=== PATIENT | female | born 1990 | race Two or more races ===

== ENCOUNTER 2016-12-22 13:44 | Emergency (ER) | payer BC, OTHER ==
[~2016-12-22] VITALS: Ht 162.6 cm; Wt 66.7 kg
[~2016-12-22 13:44] MED LIST: HYDR-971 PO; NAPR-695 PO
[2016-12-22 13:52] VITALS: BP 110/65
[2016-12-22 14:53] LABS: BILIRUBIN,URINE NEGATIVE (NEG); GLUCOSE,URINE NEGATIVE (NEG); NITRITE,URINE NEGATIVE (NEG); PROTEIN,URINE NEGATIVE (NEG-TRACE)
--- NOTE | 2016-12-22 14:54 | PHYS DOC ---
Past Medical History Past Medical History: Asthma Past Surgical History: No Surgical History Alcohol Use: None Drug Use: None Adult General Chief Complaint Chief Complaint: LOWER BACK PAIN OR INJURY HPI HPI Patient is a 26 year old female with history of asthma who presents with bilateral low back pain mild in nature worse on movement with slight dysuria and intermittent episodes of fever for the last 2 weeks. Patient is currently breast-feeding and has an Implanon hence denies any chance she is . Denies any hematuria. Denies any loss of bowel bladder function. Denies any numbness or tingling to bilateral lower extremities. Review of Systems Review of Systems Constitutional: Denies fever or chills [] Eyes: Denies change in visual acuity, redness, or eye pain [] HENT: Denies nasal congestion or sore throat [] Respiratory: Denies cough or shortness of breath [] Cardiovascular: No additional information not addressed in HPI [] GI: Denies abdominal pain, nausea, vomiting, bloody stools or diarrhea [] : dysuria and denies hematuria [] Musculoskeletal: Low back pain Integument: Denies rash or skin lesions [] Neurologic: Denies headache, focal weakness or sensory changes [] Endocrine: Denies polyuria or polydipsia [] Allergies Allergies Allergies Coded Allergies Type Severity Reaction Last Updated Verified No Known Allergies Allergy Unknown 09/09/15 Yes Physical Exam Physical Exam Constitutional: Well developed, well nourished, no acute distress, non-toxic appearance. [] HENT: Normocephalic, atraumatic, bilateral external ears normal, oropharynx moist, no oral exudates, nose normal. [] Eyes: PERRLA, EOMI, conjunctiva normal, no discharge. [] Neck: Normal range of motion, no tenderness, supple, no stridor. [] Cardiovascular:Heart rate regular rhythm, no murmur [] Lungs & Thorax: Bilateral breath sounds clear to auscultation [] Abdomen: Bowel sounds normal, soft, no tenderness, no masses, no pulsatile masses. [] Skin: Warm, dry, no erythema, no rash. [] Back: Paraspinal muscles tenderness to the lumbar spine, no midline lumbar spine tenderness, no CVA tenderness. [] Extremities: No tenderness, no cyanosis, no clubbing, ROM intact, no edema. [] Neurologic: Alert and oriented X 3, normal motor function, normal sensory function, no focal deficits noted. [] Psychologic: Affect normal, judgement normal, mood normal. [] Current Patient Data Vital Signs Vital Signs Date Time Temp Pulse Resp B/P (MAP) Pulse Ox O2 Delivery O2 Flow Rate FiO2 12/22/16 13:52 98.1 64 18 98 Room Air 98.1 Lab Values Laboratory Tests Test 12/22/16 14:28 12/22/16 14:45 POC Urine HCG, Qualitative Hcg negative (Negative) Urine Collection Type Unknown Urine Color Yellow Urine Clarity Clear Urine pH 6.0 Urine Specific [place] >=1.030 Urine Protein Negative mg/dL (NEG-TRACE) Urine Glucose (UA) Negative mg/dL (NEG) Urine Ketones (Stick) Negative mg/dL (NEG) Urine Blood Negative (NEG) Urine Nitrite Negative (NEG) Urine Bilirubin Negative (NEG) Urine Urobilinogen Dipstick 1.0 mg/dL (0.2 mg/dL) Urine Leukocyte Esterase Negative (NEG) Urine RBC 0 /HPF (0-2) Urine WBC 0 /HPF (0-4) Urine Squamous Epithelial Cells Few /LPF Urine Bacteria 0 /HPF (0-FEW) Urine Mucus Marked /LPF EKG EKG [] Radiology/Procedures Radiology/Procedures [] Course & Med Decision Making Course & Med Decision Making Pertinent Labs and Imaging studies reviewed. (See chart for details) Patient is in the ED with low back pain and slight dysuria. She is also complaining of subjective fevers. She is afebrile in the ED. urine analysis is negative for infection or blood. Patient's pain is musculoskeletal. She is afebrile. She'll be discharged with naproxen and Flexeril and instructed to establish care with a PCP in follow-up. Dragon Disclaimer Dragon Disclaimer This electronic medical record was generated, in whole or in part, using a voice recognition dictation system. Departure Departure Impression: Primary Impression: Low back pain Additional Impression: Fever Disposition: 01 HOME, SELF-CARE Condition: STABLE Referrals: NO PCP (PCP) Follow-up with the primary care doctor in one week RAOUL WELDON MD you can follow up with the eye doctor for eye concerns Patient Instructions: Back Pain, Adult Additional Instructions: You were seen for ongoing back pain. Please establish care with a primary care doctor and follow-up. You can apply heat to your low back. Scripts Cyclobenzaprine Hcl (CYCLOBENZAPRINE HCL) 10 Mg Tablet 1 TAB PO TID, #30 TAB Prov: DAO RIVERA APRN 12/22/16 Naproxen (NAPROXEN) 500 Mg Tablet.dr 1 TAB PO BID, #60 TAB 0 Refills Prov: DAO RIVERA APRN 12/22/16 Problem Qualifiers Primary Impression: Low back pain Chronicity: acute Back pain laterality: bilateral Sciatica presence: without sciatica Qualified Codes: M54.5 - Low back pain Additional Impression: Fever Fever type: unspecified Qualified Codes: R50.9 - Fever, unspecified DAO RIVERA APRN Dec 22, 2016 14:54
[2016-12-22 15:04] LABS: BACTERIA,URINE 0 /HPF (0-FEW); RBC,URINE 0 /HPF (0-2); SQUAMOUS EPITHELIAL CELL,UR FEW /LPF; WBC,URINE 0 /HPF (0-4)
[2016-12-22] MEDS ORDERED: NAPR500T8 PO (15:13)
[2016-12-22] MEDS ORDERED: CYCL10TA2 PO (15:13)
== END 2016-12-22 15:21 | disposition home or self-care (01) ==
LOC: ER 13:44
DX: M54.5 Low back pain (principal); R50.9 Fever, unspecified; R30.0 Dysuria; J45.909 Unspecified asthma, uncomplicated
CPT/HCPCS: 81001; 81025; 99283

== ENCOUNTER 2018-11-07 20:25 | Emergency (ER) | payer BC, OTHER ==
[~2018-11-07] VITALS: Ht 162.6 cm; Wt 71.2 kg
[~2018-11-07 20:25] MED LIST changes: +CYCL10TA2 PO; +HYDR-3164 PO; -HYDR-971 PO; +NAPR500T8 PO
[2018-11-07 20:42] LABS: BILIRUBIN,URINE NEGATIVE (NEG); CLARITY,URINE CLEAR; COLOR,URINE YELLOW; NITRITE,URINE NEGATIVE (NEG); PROTEIN,URINE NEGATIVE (NEG-TRACE); UROBILINOGEN,URINE 0.2 mg/dL (0.2 mg/dL)
[2018-11-07] MEDS ORDERED: ACETAMINOPHEN 500 MG TABLET PO ONE (20:45)
[2018-11-07] MEDS ORDERED: ONDANSETRON PF 4 MG/2 ML VIAL. IV ONE (20:45)
[2018-11-07] MEDS ORDERED: IV NORMAL SALINE 1000ML BAG 1,000 ML IV ONE ×2 (20:45)
[2018-11-07] MEDS ORDERED: MORPHINE SULFATE 2 MG/ML VIAL. IV/SQ PRN (20:45)
[2018-11-07] MEDS ORDERED: PIPERACILLIN/TAZOBACTAM 4.5 GM in IV NORMAL SALINE 100ML 100 ML IV ONE (20:45)
[2018-11-07 20:51] LABS: BACTERIA,URINE MODERATE /HPF (0-FEW); RBC,URINE RARE /HPF (0-2); SQUAMOUS EPITHELIAL CELL,UR MANY /LPF
[2018-11-07 20:56] LABS: BASO % 0 % (0-3); EOS % 0 % (0-3); HEMATOCRIT 35.6 % (36.0-47.0); HEMOGLOBIN 11.5 g/dL (12.0-15.5); LYMPH # 0.8 x10^3/uL (1.0-4.8); LYMPH % 6 % (24-48); MEAN CORPUSCULAR HEMOGLOBIN 24 pg (25-35); MEAN CORPUSCULAR HGB CONC 32 g/dL (31-37); MEAN CORPUSCULAR VOLUME 73 fL (79-100); MONO # 0.4 x10^3/uL (0.0-1.1); MONO % 3 % (0-9); NEUT # 11.7 x10^3/uL (1.8-7.7); NEUT % 91 % (31-73); PLATELET COUNT 226 x10^3/uL (140-400); RED BLOOD COUNT 4.87 x10^6/uL (3.50-5.40); RED CELL DISTRIBUTION WIDTH 14.5 % (11.5-14.5); WHITE BLOOD COUNT 12.9 x10^3/uL (4.0-11.0)
[2018-11-07 21:07] LABS: CALCIUM 8.9 mg/dL (8.5-10.1); POTASSIUM 3.9 mmol/L (3.5-5.1)
[2018-11-07 21:12] LABS: ALBUMIN 3.8 g/dL (3.4-5.0); ALBUMIN/GLOBULIN RATIO 0.9 (1.0-1.7); TOTAL BILIRUBIN 0.5 mg/dL (0.2-1.0); TOTAL PROTEIN 8.1 g/dL (6.4-8.2)
[2018-11-07 21:13] LABS: % BANDS 1 % (0-9); % BASOS 1 % (0-3); % LYMPHS 10 % (24-48); % MONOS 3 % (0-10); % SEGS 85 % (35-66)
[2018-11-07 21:14] LABS: PLT ESTIMATE ADEQUATE (ADEQUATE)
[2018-11-07 21:16] LABS: HYPOCHROMIA MOD; MICROCYTOSIS MOD; POLYCHROMASIA SLIGHT; TOXIC GRANULATION SLIGHT
[2018-11-07 21:21] LABS: CREATINE KINASE 101 U/L (26-192)
[2018-11-07] MEDS ORDERED: CONTRAST GIVEN. MC PRN (21:45)
[2018-11-07] MEDS ORDERED: IOHEXOL 300 MG/ML 100ML VIAL. IV ONE (22:00)
[2018-11-07 22:17] LABS: U PREG PATIENT NEGATIVE (NEG)
[2018-11-07 23:17] VITALS: BP 98/59
--- NOTE | 2018-11-07 23:26 | PHYS DOC ---
Past Medical History Past Medical History: Asthma Past Surgical History: No Surgical History Alcohol Use: None Drug Use: None Adult General Chief Complaint Chief Complaint: ABDOMINAL PAIN HPI HPI Patient is a 28 year old female with history of asthma who presents to the ED today with multiple complaints. Patient states since yesterday she's had fever and chills. She states by this afternoon she had developed mild bilateral lower abdominal cramping like pain as well as mid and low back pain. She states she also had nausea with no vomiting. She states she took amoxicillin from the mother then later on found out it was . She states her symptoms got exacerbated with amoxicillin. Review of Systems Review of Systems Constitutional: Reports fever and chills Eyes: Denies change in visual acuity, redness, or eye pain [] HENT: Denies nasal congestion or sore throat [] Respiratory: Denies cough or shortness of breath [] Cardiovascular: No additional information not addressed in HPI [] GI: Reports abdominal pain with nausea, denies vomiting, bloody stools or diarrhea [] : Denies dysuria or hematuria [] Musculoskeletal: Reports low-back pain or Integument: Denies rash or skin lesions [] Neurologic: Denies headache, focal weakness or sensory changes [] All other systems were reviewed and found to be within normal limits, except as documented in this note. Current Medications Current Medications Current Medications Medications (Trade) Dose Ordered Sig/Chanel Start Time Stop Time Status Last Admin Dose Admin Acetaminophen (Tylenol) 1,000 mg 1X ONCE 11/07/18 20:45 11/07/18 20:46 DC 11/07/18 20:57 1,000 MG Info (CONTRAST GIVEN -- Rx MONITORING) 1 each PRN DAILY PRN 11/07/18 21:45 11/09/18 21:44 Iohexol (Omnipaque 300 Mg/ml) 75 ml 1X ONCE 11/07/18 22:00 11/07/18 22:01 DC 11/07/18 21:57 75 ML Morphine Sulfate (Morphine Sulfate) 2 mg PRN Q15MIN PRN 11/07/18 20:45 11/08/18 20:44 Ondansetron HCl (Zofran) 4 mg 1X ONCE 11/07/18 20:45 11/07/18 20:46 DC 11/07/18 20:57 4 MG Piperacillin Sod/ Tazobactam Sod 4.5 gm/Sodium Chloride 100 ml @ 200 mls/hr 1X ONCE 11/07/18 20:45 11/07/18 21:14 DC 11/07/18 20:57 200 MLS/HR Sodium Chloride 1,000 ml @ 1,000 mls/hr 1X ONCE 11/07/18 20:45 11/07/18 21:44 DC 11/07/18 21:39 1,000 MLS/HR Allergies Allergies Allergies Coded Allergies Type Severity Reaction Last Updated Verified No Known Allergies Allergy Unknown 09/09/15 Yes Physical Exam Physical Exam Constitutional: Well developed, well nourished, no acute distress, non-toxic appearance. [] HENT: Normocephalic, atraumatic, bilateral external ears normal, oropharynx moist, no oral exudates, nose normal. [] Eyes: PERRLA, EOMI, conjunctiva normal, no discharge. [] Neck: Normal range of motion, no tenderness, supple, no stridor. [] Cardiovascular:Heart rate regular rhythm, no murmur [] Lungs & Thorax: Bilateral breath sounds clear to auscultation [] Abdomen: Bowel sounds normal, soft, no tenderness, no masses, no pulsatile masses. [] Skin: Warm, dry, no erythema, no rash. [] Back: No tenderness, no CVA tenderness. [] Extremities: No tenderness, no cyanosis, no clubbing, ROM intact, no edema. [] Neurologic: Alert and oriented X 3, normal motor function, normal sensory function, no focal deficits noted. [] Psychologic: Affect normal, judgement normal, mood normal. [] Current Patient Data Vital Signs Vital Signs Date Time Temp Pulse Resp B/P (MAP) Pulse Ox O2 Delivery O2 Flow Rate FiO2 11/07/18 21:01 96 112/65 (81) 99 Room Air 11/07/18 20:35 100.4 17 100.4 Lab Values Laboratory Tests Test 11/07/18 20:27 11/07/18 20:44 Urine Collection Type Unknown Urine Color Yellow Urine Clarity Clear Urine pH 8.0 Urine Specific [place] 1.020 Urine Protein Negative mg/dL (NEG-TRACE) Urine Glucose (UA) Negative mg/dL (NEG) Urine Ketones (Stick) Negative mg/dL (NEG) Urine Blood Negative (NEG) Urine Nitrite Negative (NEG) Urine Bilirubin Negative (NEG) Urine Urobilinogen Dipstick 0.2 mg/dL (0.2 mg/dL) Urine Leukocyte Esterase Trace (NEG) Urine RBC Rare /HPF (0-2) Urine WBC 1-4 /HPF (0-4) Urine Squamous Epithelial Cells Many /LPF Urine Bacteria Moderate /HPF (0-FEW) Urine Mucus Slight /LPF Urine Test Negative (NEG) White Blood Count 12.9 x10^3/uL (4.0-11.0) H Red Blood Count 4.87 x10^6/uL (3.50-5.40) Hemoglobin 11.5 g/dL (12.0-15.5) L Hematocrit 35.6 % (36.0-47.0) L Mean Corpuscular Volume 73 fL (79-100) L Mean Corpuscular Hemoglobin 24 pg (25-35) L Mean Corpuscular Hemoglobin Concent 32 g/dL (31-37) Red Cell Distribution Width 14.5 % (11.5-14.5) Platelet Count 226 x10^3/uL (140-400) Neutrophils (%) (Auto) 91 % (31-73) H Lymphocytes (%) (Auto) 6 % (24-48) L Monocytes (%) (Auto) 3 % (0-9) Eosinophils (%) (Auto) 0 % (0-3) Basophils (%) (Auto) 0 % (0-3) Neutrophils # (Auto) 11.7 x10^3/uL (1.8-7.7) H Lymphocytes # (Auto) 0.8 x10^3/uL (1.0-4.8) L Monocytes # (Auto) 0.4 x10^3/uL (0.0-1.1) Eosinophils # (Auto) 0.0 x10^3/uL (0.0-0.7) Basophils # (Auto) 0.0 x10^3/uL (0.0-0.2) Segmented Neutrophils % 85 % (35-66) H Band Neutrophils % 1 % (0-9) Lymphocytes % 10 % (24-48) L Monocytes % 3 % (0-10) Basophils % 1 % (0-3) Toxic Granulation Slight Platelet Estimate Adequate (ADEQUATE) Polychromasia Slight Hypochromasia Mod Microcytosis Mod Sodium Level 137 mmol/L (136-145) Potassium Level 3.9 mmol/L (3.5-5.1) Chloride Level 102 mmol/L (98-107) Carbon Dioxide Level 25 mmol/L (21-32) Anion Gap 10 (6-14) Blood Urea Nitrogen 11 mg/dL (7-20) Creatinine 1.0 mg/dL (0.6-1.0) Estimated GFR (Cockcroft-Gault) 66.0 BUN/Creatinine Ratio 11 (6-20) Glucose Level 121 mg/dL (70-99) H Lactic Acid Level 1.2 mmol/L (0.4-2.0) Calcium Level 8.9 mg/dL (8.5-10.1) Total Bilirubin 0.5 mg/dL (0.2-1.0) Aspartate Amino Transferase (AST) 19 U/L (15-37) Alanine Aminotransferase (ALT) 19 U/L (14-59) Alkaline Phosphatase 71 U/L (46-116) Creatine Kinase 101 U/L (26-192) Creatine Kinase MB (Mass) < 0.5 ng/mL (0.0-3.6) Creatine Kinase MB Relative Index % (0-4) Total Protein 8.1 g/dL (6.4-8.2) Albumin 3.8 g/dL (3.4-5.0) Albumin/Globulin Ratio 0.9 (1.0-1.7) L Lipase 70 U/L (73-393) L Procalcitonin < 0.10 ng/mL (0.00-0.10) Laboratory Tests 11/07/18 20:44 Laboratory Tests 11/07/18 20:44 EKG EKG [] Radiology/Procedures Radiology/Procedures [] Course & Med Decision Making Course & Med Decision Making Pertinent Labs and Imaging studies reviewed. (See chart for details) This is a 28-year-old female patient who presents to the ED today complaining of abdominal pain, fever, chills, nausea, symptoms began yesterday and got worse this afternoon.. Patient arrives in the ED with a temperature of 100.4, HR 109 respiration, 17, BP 118/76 O2 saturations 100% on RA. CBC with a WBC of 12.9, with a left shift CMP-no acute findings. Lactic is normal. Urine analysis appears contaminated with squamous cells epithelium, no nitrates, no leukocytes. Verbal results for CT of the abdomen and pelvic was noted for ascending infection in the ureters Patient was given 2 L of IV fluid and Zosyn. Discharge and cipro. Follow-up with PCP in one week Tonja Disclaimer Tonja Disclaimer This electronic medical record was generated, in whole or in part, using a voice recognition dictation system. Departure Departure Impression: Primary Impression: Acute pyelonephritis Additional Impressions: Fever Tachycardia Disposition: 01 HOME, SELF-CARE Condition: STABLE Referrals: NO PCP (PCP) follow up with your doctor in one week Patient Instructions: Pyelonephritis, Adult, [id number] Additional Instructions: You were evaluated in the emergency room and noted to have infection in your kidneys. We put you on antibiotics, take them as prescribed until completed. Follow-up with your doctor in one week. Scripts Ciprofloxacin Hcl (CIPRO) 500 Mg Tablet 1 TAB PO BID, #14 TAB Prov: DAO RIVERA APRN 11/07/18 Problem Qualifiers Additional Impressions: Fever Fever type: unspecified Qualified Codes: R50.9 - Fever, unspecified DAO RIVERA APRN Nov 07, 2018 23:26
[2018-11-07] MEDS ORDERED: CIPR500T94 PO (23:33)
--- NOTE | 2018-11-08 08:10 | RAD ---
EXAM: PA and Lateral Views of the Chest DATE: 11/07/2018 9:41 PM INDICATION: Fever COMPARISON: No Prior FINDINGS: The heart is not enlarged. Mediastinal and hilar contours are normal. No focal parenchymal airspace opacity. No pleural effusion or pneumothorax. IMPRESSION: 1. No radiographic evidence for acute cardiopulmonary process. Electronically signed by: Simon Yan MD (11/08/2018 8:07 AM) [facility]
--- NOTE | 2018-11-08 08:10 | RAD ---
PQRS Compliance Statement: One or more of the following individualized dose reduction techniques were utilized for this examination: 1. Automated exposure control 2. Adjustment of the mA and/or kV according to patient size 3. Use of iterative reconstruction technique CT abdomen/pelvis with contrast 11/07/2018 9:11 PM INDICATION: Abdominal pain COMPARISON: None available TECHNIQUE: Multiple axial CT images of the abdomen and pelvis were obtained after the intravenous administration of 75 mL Omnipaque 300. Coronal and sagittal reformats are provided. FINDINGS: Lung bases are clear. Heart size is within normal limits. Hypoattenuation the hepatic parenchyma suggestive of hepatic steatosis. Spleen, bilateral adrenal glands, pancreas and gallbladder are normal in appearance. The abdominal aorta is normal in course and caliber. There are no pathologically enlarged lymph nodes in the abdomen and pelvis. There is no abdominal free fluid. There is no free intraperitoneal air. Small and large bowel are normal in caliber. There is no evidence for bowel obstruction. There are no pericolonic inflammatory changes. A normal, nondilated appendix is visualized without adjacent inflammatory changes. The kidneys enhance symmetrically. There is no suspicious renal mass. There is no hydronephrosis. There are no suspected calculi within the kidneys, ureters or urinary bladder. Mild urothelial enhancement involving the ureters is nonspecific, however correlation with pyelitis may be of benefit. Urinary bladder is within normal limits given degree of distention. Follicular changes are identified in the adnexa bilaterally. No significant free fluid within the pelvis. Uterus is normal by CT. No suspicious osseous abnormality is identified. IMPRESSION: 1. Mild urothelial enhancement of the ureters, right greater than left. Correlate with urinalysis to assess for pyelitis. 2. No bowel obstruction or inflammation. Appendix is normal. Electronically signed by: Samara Townsend MD (11/08/2018 8:06 AM) [id number]
== END 2018-11-07 23:56 | disposition home or self-care (01) ==
LOC: ER 20:25
DX: N10 Acute pyelonephritis (principal); R00.0 Tachycardia, unspecified; M54.5 Low back pain; J45.909 Unspecified asthma, uncomplicated
CPT/HCPCS: 36415; 71046; 74177; 80053; 81001; 81025; 82553; 83605; 83690; 84145; 85007; 85025; 87040; 87070; 87086; 87880; 96365; 96375; 99285; J2405; J2543; J7030; Q9967